=== PATIENT | female | born 1985 | race Two or more races ===

== ENCOUNTER 2020-07-30 22:50 | Emergency (ER) | payer MEDICAID, OTHER ==
[~2020-07-30] VITALS: Ht 160 cm; Wt 70.1 kg
[2020-07-30 23:03] VITALS: BP 145/90
[2020-07-31] MEDS ORDERED: BACITRACIN ZINC OINT 500U/GM, 0.9 GM ONE (00:07)
--- NOTE | 2020-07-31 00:10 | NUR ---
Bacitracin and wound care items. Pt dc home with instruct.
[2020-07-31] MEDS ORDERED: BACITRACIN ZINC OINT 500U/GM, 0.9 GM TP ONE (00:30)
== END 2020-07-31 00:18 | disposition home or self-care (01) ==
LOC: ED 07-31 00:05
DX: S61.011A Laceration without foreign body of right thumb without damage to nail, initial encounter (principal); X58.XXXA Exposure to other specified factors, initial encounter; Y93.89 Activity, other specified; Y92.89 Other specified places as the place of occurrence of the external cause; Y99.8 Other external cause status
CPT/HCPCS: 99282

== ENCOUNTER 2020-08-15 22:25 | Emergency (ER) | payer MEDICAID ==
[~2020-08-15] VITALS: Ht 162.6 cm; Wt 67.0 kg
--- NOTE | 2020-08-15 22:41 | NUR ---
SHANTA FROM [facility]. PD FOUND PT PT WAS STATING SHE WAS HAVING TROUBLED BREATHING. PT C/O OF SORE THROAT AND LOSING VOICE. PT APPEARS TO HAVE HIGH AMOUNTS OF ANXIETY. REPORTS SMOKING MARIJUANA AT 1620. PT IS TWITCHING, FIDGETING ,ANXIOUS, AND RESTLESS. STATES SHE HAS NOT TAKEN ANY OTHER DRUGS FOR 2-3 WEEKS. PT STATES SHE IS OUT OF BREATHING AND PSYCH MEDS. MD AT BEDSIDE FOR EVAL. ATTACHED TO CARD.SP02.BP MONITORS. VSS WITH SLIGHTLY ELEVATED HR. BED IN LOW POSITION, RAILS ENGAGED. CALL LIGHT ON LAP. WCTM.
[2020-08-15] MEDS ORDERED: OLANZAPINE 10 MG TABLET ONE (22:53)
[2020-08-15 23:00] VITALS: BP 132/75
[2020-08-15] MEDS ORDERED: OLANZAPINE 10 MG TABLET PO ONE (23:00)
== END 2020-08-15 23:02 | disposition home or self-care (01) ==
LOC: ED 22:56
DX: F20.89 Other schizophrenia (principal); F15.10 Other stimulant abuse, uncomplicated; F17.210 Nicotine dependence, cigarettes, uncomplicated; Z72.9 Problem related to lifestyle, unspecified
CPT/HCPCS: 99406

== ENCOUNTER 2020-10-04 19:39 | Emergency (ER) | payer MEDICAID ==
--- NOTE | 2020-10-04 22:41 | NUR ---
ASSUMED CARE OF PATIENT. PATIENT REPORTS SHE IS POSITIVE FOR COVID, PT IS ALSO COMING OFF OF METH. LAST USE WAS YESTERDAY. VS STABLE. CALL LIGHT IN PLACE. WILL CONTINUE TO MONITOR.
--- NOTE | 2020-10-04 23:31 | NUR ---
PT IS A&OX4. PT GIVEN A BUS PASS AND DISCHARGE INSTRUCTION WITH GROUP HOME INFO ON IT. PT HAS APPROPRIATE CLLOTHING ON FOR DC. PT IS SCREAMING "FUCK YOU" OVER AND OVER. "YOU SHOULD ." PT THROWING TRASH CAN AROUND ROOM. SECURITY CALLED.
[2020-10-04 23:43] VITALS: BP 101/49
== END 2020-10-04 23:46 | disposition home or self-care (01) ==
LOC: ED 19:45
DX: U07.1 COVID-19 (principal); J06.9 Acute upper respiratory infection, unspecified; F15.10 Other stimulant abuse, uncomplicated; F17.210 Nicotine dependence, cigarettes, uncomplicated; Z72.9 Problem related to lifestyle, unspecified
CPT/HCPCS: 71045; 99283; 99406

== ENCOUNTER 2020-10-15 03:07 | Emergency (ER) | payer MEDICAID ==
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
== END 2020-10-15 03:22 | disposition left against medical advice (07) ==
LOC: ED 03:17
DX: R68.89 Other general symptoms and signs (principal); Z53.21 Procedure and treatment not carried out due to patient leaving prior to being seen by health care provider

== ENCOUNTER 2020-10-15 08:47 | Observation (INO) | payer MEDICAID ==
[~2020-10-15] VITALS: Ht 162.6 cm; Wt 58.0 kg
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
[2020-10-15 10:25] LABS: BASOPHILS % (AUTO) 0 % (0-1); EOSINOPHILS % (AUTO) 1 % (1-7); LYMPHOCYTES % (AUTO) 18 % (22-44); MEAN CORPUSCULAR HEMOGLOBIN 29.9 pg (27.0-34.8); MEAN CORPUSCULAR HGB CONC 33.8 g/dL (32.4-35.8); MEAN PLATELET VOLUME 6.4 fL (7.4-10.4); MONOCYTES % (AUTO) 10 % (2-9); NEUTROPHILS % (AUTO) 71 % (42-75); PLATELET COUNT 441 x10^3/uL (130-400); RED BLOOD COUNT 4.22 x10^6/uL (3.82-5.3)
[2020-10-15 10:35] LABS: ALBUMIN 3.3 g/dL (3.4-5.0); ANION GAP 7 mmol/L (5-15); CALCIUM 8.8 mg/dL (8.5-10.1); CHLORIDE 113 mmol/L (98-107); CREATININE 0.41 mg/dL (0.55-1.02)
[2020-10-15 10:41] LABS: SALICYLATE LEVEL < 1.7 mg/dL (2.8-20.0)
[2020-10-15] MEDS ORDERED: COVID-19 VACC,MRNA(MODERNA)/PF 100 MCG/0.5ML IM-VACC ONE (11:00)
--- NOTE | 2020-10-15 13:05 | NUR ---
INFORMED CONSENT OBTAINED FROM PT FOR COVID-19 VACCINATION. VACCINE INFORMATION AND VACCINATION CARD. PLACED WITH PT BELONGINGS, PT IS ON L2K. INFORMED CONSENT SIGNED AND PLACED WITH PT CHART AT THIS TIME. PT EDUCATED ON NEED TO SCHEDULE F/U APPT FOR 2ND VACCINE WITH HEALTH DEPARTMENT, AND PT VERBALIZES UNDERSTANDING.
--- NOTE | 2020-10-15 13:31 | NUR ---
[facility] ACCEPTS PT. URINE DOA AND COVID TEST ORDERED. [facility] WILL TAKE PT ONCE THESE TESTS ARE RESULTED.
--- NOTE | 2020-10-15 13:33 | NUR ---
REPORT OF PT TO OMKAR LEON. ALL QUESTIONS ANSWERED.
--- NOTE | 2020-10-15 13:42 | NUR ---
COVID SAMPLE OBTAINED AND WALKED TO LAB. PT STATES SHE CAN NOT URINATE AT THIS TIME. WILL TRY IN 10 MINUTES.
--- NOTE | 2020-10-15 14:17 | NUR ---
URINE COLLECTED AND SENT TO LAB. PT RETURNED TO ROOM W/O INCIDENT. RESP EVEN AND UNLABORED, KAI.
--- NOTE | 2020-10-15 14:50 | NUR ---
REPORT FROM CAROLYN RN WITH ASSESSMENT PATIENT HYPERVERBAL/TANGENTIAL/MOVING ERRATICALLY ALL OVER THE ROOM. ADMIT TO METHAMPHETAMINE USE YESTERDAY. DESIZING MACHINE OPERATOR ABLE TO RE-DIRECT VERBALLY HOWEVER DESIZING MACHINE OPERATOR TO ASKE ERP FOR SEDATIVE MEDICATIONS PATIENT A RISK TO HARM SELF/OTHERS
[2020-10-15 14:55] LABS: AMPHETAMINE SCREEN, URINE Positive (Negative); BARBITURATE SCREEN, URINE Negative (Negative); BENZODIAZEPINE SCREEN, URINE Negative (Negative); CANNABINOID SCREEN, URINE Positive (Negative); COCAINE SCREEN, URINE Negative (Negative); METHADONE SCREEN, URINE Negative (Negative); OPIATE SCREEN, URINE Negative (Negative)
--- NOTE | 2020-10-15 15:08 | NUR ---
[phone]: DARRYN (SISTER) WOULD LIKE TO BE CONTACTED/UPDATED
[2020-10-15] MEDS ORDERED: ZIPRASIDONE 20 MG INJ IM ONE ×2 (15:15→15:30)
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
[2020-10-15] MEDS ORDERED: DIPHENHYDRAMINE 50 MG/ML, 1ML ONE (15:28)
[2020-10-15] MEDS ORDERED: LORazepam 2 MG/ML, 1ML ONE (15:28)
--- NOTE | 2020-10-15 15:46 | NUR ---
THROUGH PUT RN: HOLD ON BHU TRANSFER FOR NOW 2/2 RECENT MEDICATIONS AND NEED FOR RESTRAINTS
--- NOTE | 2020-10-15 15:52 | NUR ---
WITH REASSESSMENT PATIENT NOW DEEP ASLEEP. EVEN CHEST RISE NOTED. SECURITY CALLED TO REMOVE RESTRAINTS TEAM AUTOMOBILE ASSEMBLER ATTEMPTED TO CALL REPORT. RECEIVING RN UNAVAILABLE. WILL RE-ATTEMPT SHORTLY
[2020-10-15] MEDS ORDERED: DIPHENHYDRAMINE 50 MG/ML, 1ML IM ONE (16:00)
[2020-10-15] MEDS ORDERED: LORazepam 2 MG/ML, 1ML IM PRN (16:00)
--- NOTE | 2020-10-15 16:00 | NUR ---
RESTRAINT PAPER WORK FILLED OUT AND FILED ATBILLY AND GREGYL DEFERRED PATIENT NOW ASLEEP. ROOM CONTROLLED WITH PSYCHIATRIC PRECAUTIONS SITTER WITHIN DIRECT EYELINE
[2020-10-15 16:11] VITALS: BP 126/68
--- NOTE | 2020-10-15 16:34 | NUR ---
THROUGH PUT RN: PER [facility] PSYCHIATRIST PT NEEDS TO BE STABLE OUT OF RESTRAINTS FOR 4HRS PRIOR TO TRANSFER TO [facility]. RESTRAINTS WERE REMOVED AT 1600.
--- NOTE | 2020-10-15 19:09 | NUR ---
CARE ASSUMED AT THIS TIME. FIRST CONTACT WITH PT. PT SLEEPING IN BED. NADN. PSYCH PERCAUTIONS MAINTAINED. GARAGE DOORS DOWN AND LOCKED. WILL CONTINUE TO MONITOR.
--- NOTE | 2020-10-15 20:00 | NUR ---
JUAN CARLOS FROM [facility] CAME DOWN TO EVALUATE PT. REPORT GIVEN AT THIS TIME. NADN. PT ABLE TO AMBULATE BY SELF. WILL CONTINUE TO MONITOR WHILE WAITING FOR PT TO GO UPSTAIRS.
--- NOTE | 2020-10-15 20:30 | NUR ---
SPOKE WITH PT FAMILY MEMBER AND GAVE AND UPDATE ON PT CONDITION WITH PT CONSENT.
== END 2020-10-15 21:41 ==
LOC: ED 09:47 → UNDOADMIN 10:06 → EDIP 10:06 → ORIP 10:06
PROVIDERS: ADMIT Emergency Medicine; ATTEND Emergency Medicine
DX: R45.851 Suicidal ideations (principal); Z20.822 Contact with and (suspected) exposure to COVID-19; F41.8 Other specified anxiety disorders; F90.9 Attention-deficit hyperactivity disorder, unspecified type; F20.9 Schizophrenia, unspecified; F15.20 Other stimulant dependence, uncomplicated; F43.10 Post-traumatic stress disorder, unspecified; F12.90 Cannabis use, unspecified, uncomplicated; F17.200 Nicotine dependence, unspecified, uncomplicated; Z91.5 Personal history of self-harm
CPT/HCPCS: 36415; 80048; 80299; 80307; 80320; 80329; 82040; 84703; 85025; 87426; 91301; G0378; J3486; G0480

== ENCOUNTER 2020-10-15 14:25 | Inpatient (IN) | payer MEDICAID ==
[~2020-10-15] VITALS: Ht 160 cm; Wt 51.9 kg
[2020-10-15] MEDS ORDERED: DOCUSATE 100 MG CAPSULE PO PRN (15:00)
[2020-10-15] MEDS ORDERED: ONDANSETRON ODT 4 MG PO PRN (15:00)
[2020-10-15] MEDS ORDERED: BISACODYL 10 MG SUPP PR PRN (15:00)
[2020-10-15] MEDS ORDERED: POLYETHYLENE GLYCOL 17 GM PACKET PO PRN (15:00)
[2020-10-15 22:38] VITALS: BP 102/73
[2020-10-15] MEDS: DIPHENHYDRAMINE 50 MG CAPSULE PO PRN (22:42)
[2020-10-15] MEDS: ACETAMINOPHEN 325 MG TABLET PO PRN (22:42)
[2020-10-15] MEDS: HALOPERIDOL 5 MG TABLET PO PRN (23:16)
[2020-10-15] MEDS: LORazepam 1MG TABLET PO PRN (23:16)
[2020-10-16 06:07] LABS: MICROSCOPIC AUTO
[2020-10-16 06:29] LABS: CHOL/HDL RATIO 2.5; FREE T4 (FREE THYROXINE) 0.98 ng/dL (0.76-1.46)
[2020-10-16 07:44] VITALS: BP 102/65
[2020-10-16] MEDS ORDERED: CARBAMAZEPINE 200 MG TABLET ONE (13:13)
[2020-10-16] MEDS ORDERED: RISPERIDONE 2 MG TABLET ONE (13:13)
[2020-10-16] MEDS: CARBAMAZEPINE 200 MG TABLET PO SCH ×2 (13:15→20:00)
[2020-10-16] MEDS: RISPERIDONE 2 MG TABLET PO SCH ×2 (13:16→20:00)
[2020-10-16] MEDS ORDERED: HALOPERIDOL 5 MG/ML ONE (17:15)
[2020-10-16] MEDS ORDERED: LORazepam 2 MG/ML, 1ML ONE (17:15)
[2020-10-16] MEDS ORDERED: DIPHENHYDRAMINE 50 MG/ML, 1ML ONE (17:15)
[2020-10-16] MEDS: DIPHENHYDRAMINE 50 MG CAPSULE PO PRN (17:21)
[2020-10-16] MEDS: LORazepam 1MG TABLET PO PRN (17:21)
[2020-10-16] MEDS: HALOPERIDOL 5 MG TABLET PO PRN (17:21)
[2020-10-16] MEDS ORDERED: DIPHENHYDRAMINE 50 MG/ML, 1ML IM ONE (17:30)
[2020-10-16] MEDS ORDERED: LORazepam 2 MG/ML, 1ML IM ONE (17:30)
[2020-10-16] MEDS ORDERED: HALOPERIDOL 5 MG/ML IM ONE (17:30)
[2020-10-16 19:40] VITALS: BP 110/65
[2020-10-17 07:31] VITALS: BP 106/71
[2020-10-17] MEDS: ACETAMINOPHEN 325 MG TABLET PO PRN (08:10)
[2020-10-17] MEDS: RISPERIDONE 2 MG TABLET PO SCH ×2 (08:11→20:28)
[2020-10-17] MEDS: CARBAMAZEPINE 200 MG TABLET PO SCH ×2 (08:11→20:28)
[2020-10-17 19:23] VITALS: BP 99/64
[2020-10-17] MEDS: DIPHENHYDRAMINE 50 MG CAPSULE PO PRN (20:28)
[2020-10-18 06:44] VITALS: BP 101/65
[2020-10-18] MEDS: CARBAMAZEPINE 200 MG TABLET PO SCH ×2 (09:10→20:03)
[2020-10-18] MEDS: RISPERIDONE 2 MG TABLET PO SCH ×2 (09:10→20:03)
[2020-10-18] MEDS: LORazepam 1MG TABLET PO PRN (15:42)
[2020-10-18] MEDS: DIPHENHYDRAMINE 50 MG CAPSULE PO PRN (15:42)
[2020-10-18 19:44] VITALS: BP 105/66
[2020-10-18] MEDS: HALOPERIDOL 5 MG TABLET PO PRN (20:03)
[2020-10-19 07:41] VITALS: BP 98/68
[2020-10-19] MEDS: CARBAMAZEPINE 200 MG TABLET PO SCH ×2 (08:53→20:32)
[2020-10-19] MEDS: RISPERIDONE 2 MG TABLET PO SCH ×2 (08:53→20:32)
[2020-10-19] MEDS: ACETAMINOPHEN 325 MG TABLET PO PRN (08:54)
[2020-10-19] MEDS: HALOPERIDOL 5 MG TABLET PO PRN (12:46)
[2020-10-19 19:18] VITALS: BP 102/67
[2020-10-19] MEDS: LORazepam 1MG TABLET PO PRN (20:32)
[2020-10-20 07:48] VITALS: BP 96/65
[2020-10-20] MEDS: CARBAMAZEPINE 200 MG TABLET PO SCH (08:53)
[2020-10-20] MEDS: RISPERIDONE 2 MG TABLET PO SCH (08:53)
[2020-10-20] MEDS ORDERED: RISP2TAB80 PO (13:55)
[2020-10-20] MEDS ORDERED: CARB200T4 PO (13:55)
[2020-10-20] MEDS ORDERED: CLON0.1T22 PO (13:55)
== END 2020-10-20 14:30 | disposition home or self-care (01) | DRG 885 ==
LOC: 3E 21:41
PROVIDERS: ADMIT Psychiatry & Neurology Psychosomatic Medicine; ATTEND Psychiatry & Neurology Psychosomatic Medicine
DX: F25.0 Schizoaffective disorder, bipolar type (principal); F33.2 Major depressive disorder, recurrent severe without psychotic features; F15.20 Other stimulant dependence, uncomplicated; R45.851 Suicidal ideations; F43.10 Post-traumatic stress disorder, unspecified; F17.200 Nicotine dependence, unspecified, uncomplicated; J45.909 Unspecified asthma, uncomplicated; Z79.899 Other long term (current) drug therapy
CPT/HCPCS: 36415; 80048; 80061; 80299; 80307; 80320; 80329; 81001; 82040; 84439; 84443; 84703; 85025; 87086; 87426; 91301; 93005; 99285; G0378; J3486; G0480; J1200; J1630; J2060

== ENCOUNTER 2020-10-24 20:55 | Emergency (ER) | payer MEDICAID ==
[~2020-10-24] VITALS: Ht 160 cm; Wt 62.3 kg
[~2020-10-24 20:55] MED LIST: CARB200T4 PO; CLON0.1T22 PO; RISP2TAB80 PO
[2020-10-24] MEDS ORDERED: IBUPROFEN 800 MG TABLET PO ONE (22:30)
[2020-10-24] MEDS ORDERED: ONDANSETRON ODT 4 MG PO ONE (22:30)
[2020-10-24] MEDS ORDERED: IBUPROFEN 800 MG TABLET ONE (22:35)
[2020-10-24] MEDS ORDERED: ONDANSETRON ODT 4 MG ONE (22:36)
[2020-10-24 22:52] VITALS: BP 117/74
--- NOTE | 2020-10-24 22:57 | NUR ---
pt medicated per mar, Patient given discharge instructions and they have confirmed that they understand the instructions. Patient ambulatory with steady gait. NAD, all questions answered appropriately, denies additional needs at this time. No personal belongings left in room after discharge.
== END 2020-10-24 23:00 | disposition home or self-care (01) ==
LOC: ED 21:15
DX: G43.909 Migraine, unspecified, not intractable, without status migrainosus (principal); F15.10 Other stimulant abuse, uncomplicated; Z72.9 Problem related to lifestyle, unspecified
CPT/HCPCS: 99283